=== PATIENT | male | born 1985 | race Caucasian/White ===

== ENCOUNTER 2017-10-26 17:05 | Observation (INO) ==
[2017-10-26] MEDS ORDERED: KETOROLAC TROMETHAMINE 60 MG/2 ML VIAL IM ONE ×2 (17:19)
[2017-10-26] MEDS ORDERED: PROMETHAZINE HCL 50 MG/ML AMPUL IM ONE ×2 (17:21)
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
[2017-10-26 17:34] LABS: Hematocrit 45.7 % (42.0-52.0); Mean Corpuscular Hemoglobin 29.4 pg (27-31); Mean Platelet Volume 10.6 fl (8-11.3); Neutrophil # 8.6 K/mm3 (1.3-6.0); Neutrophil % 82.8 % (42-75.0); Platelet Count 195 K/mm3 (150-450); Red Blood Count 5.44 M/mm3 (4.7-6.0); Red Cell Distribution Width 12.5 % (11.5-14.0); White Blood Count 10.4 K/mm3 (4.0-10.5)
[2017-10-26 17:48] LABS: ALT 81 U/L (19-67); AST 36 U/L (0-48); Albumin * 2.9 gm/dl (3.4-5.0); Alkaline Phosphatase * 256 U/L (50-170); Anion Gap 14.6 mmol/L (6.8-13.8); BUN/Creatinine Ratio 9.2 (9.0-21.6); Bilirubin, Total 2.4 mg/dL (0.0-1.1); Blood Urea Nitrogen 28 mg/dL (6-23); Ca. Corrected For Albumin 9.7 mg/dL (8.4-10.2); Calcium * 9.1 mg/dL (7.9-10.9); Carbon Dioxide 27.5 mmol/L (24-32.6); Chloride 94 mmol/L (97-106); Glucose * 145 mg/dL (70-110); Potassium 4.1 mmol/L (3.4-4.6); Sodium 132 mmol/L (132-142); Total Protein 8.1 gm/dL (6.2-8.2)
[2017-10-26 18:10] LABS: CK Total * 38 U/L (0-259)
[2017-10-26 18:29] LABS: Urine Bilirubin 3 mg/dl (NEGATIVE); Urine Blood 50 /ul (NEGATIVE); Urine Ketone 5 mg/dL (NEGATIVE); Urine Nitrite Negative (NEGATIVE); Urine Protein >=300 mg/dL (NEGATIVE); Urine Specific Gravity >=1.030 SP.GR. (1.005-1.030); Urine Urobilinogen >=8.0 EU/dl (NORMAL)
[2017-10-26 18:37] LABS: Urine Appearance Cloudy (CLEAR); Urine Color Brown
[2017-10-26 18:38] LABS: Urine Bacteria None Seen; Urine RBC 0-5 /hpf (0-5); Urine WBC 0-5 /hpf (0-5)
[2017-10-26 18:39] LABS: Urine Amorphous Sediment Moderate - 2+ (NONE-FEW)
[2017-10-26 18:47] LABS: Amylase * 47 U/L (25-115); Lipase 160 U/L (73-393)
[2017-10-26 18:48] LABS: Prothrombin Time (Patient) 10.7 Seconds (9.0-11.0)
[2017-10-26 18:49] LABS: Cocaine Ur Negative (NEGATIVE); Urine Barbiturate Negative (NEGATIVE); Urine Benzodiazepines Positive (NEGATIVE); Urine Opiates Negative (NEGATIVE); Urine PCP Negative (NEGATIVE); Urine THC Positive (NEGATIVE)
[2017-10-26 18:53] LABS: INR 1.07 INR (0.90-1.10); Partial Thrombolplastin Time 30.7 Seconds (24-32)
[2017-10-26 19:02] LABS: Random Urine Total Protein 303.8 mg/dL (0-12)
[2017-10-26] MEDS ORDERED: NORMAL SALINE 1,000 ML IV ONE (19:10)
[2017-10-26] MEDS ORDERED: ONDANSETRON HCL/PF 2 MG/ML VIAL IV PRN (20:22)
[2017-10-26 20:40] LABS: Hemoglobin A1C 5.6 % (4.00-6.0)
[2017-10-26] MEDS ORDERED: ASPIRIN/ACETAMINOPHEN/CAFFEINE 1 TAB TAB PO PRN (20:43)
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
[2017-10-26] MEDS: HYDROcodone/ACETAMINOPHEN 1 EACH TABLET PO PRN (23:33)
[2017-10-26] MEDS ORDERED: AMOXICILLIN TRIHYDRATE 875 MG TABLET PO SCH (23:45)
[2017-10-27] MEDS: AMOX TR/POTASSIUM CLAVULANATE 500 MG TABLET PO SCH ×4 (00:33→22:53)
[2017-10-27] MEDS: NORMAL SALINE 1,000 ML IV PRN ×3 (04:14→19:51)
[2017-10-27] MEDS: PANTOPRAZOLE SODIUM 40 MG TABLET.EC PO SCH ×2 (04:14→09:16)
[2017-10-27 04:57] LABS: Albumin * 3.1 gm/dl (3.4-5.0); Anion Gap 15.8 mmol/L (6.8-13.8); BUN/Creatinine Ratio 10.3 (9.0-21.6); Ca. Corrected For Albumin 9.3 mg/dL (8.4-10.2); Calcium * 8.9 mg/dL (7.9-10.9); Chol/HDL Risk Ratio 16.7 mg/dL (3.3-5.0); Potassium 3.8 mmol/L (3.4-4.6); Total Protein 7.7 gm/dL (6.2-8.2)
[2017-10-27] MEDS: METOPROLOL SUCCINATE 50 MG TABLET.SA PO SCH (09:16)
[2017-10-27] MEDS: HYDROcodone/ACETAMINOPHEN 1 EACH TABLET PO PRN ×2 (09:20→18:39)
[2017-10-27] MEDS ORDERED: NORMAL SALINE 1,000 ML IV PRN (10:11)
[2017-10-27] MEDS ORDERED: PROMETHAZINE HCL 25 MG in DEXTROSE 5 % IN WATER 50 ML IV ONE ×2 (12:20)
[2017-10-27] MEDS ORDERED: NALBUPHINE HCL 20 MG/ML AMPUL IV ONE (12:20)
[2017-10-27] MEDS ORDERED: NALBUPHINE HCL 10 MG/ML AMPUL IV ONE (13:05)
--- NOTE | 2017-10-27 14:38 | PATH ---
PHYSICIAN: Kulwinder Guerrero DO LAB#: [id number] SPECIMEN DATE: 10/27/2017 SPECIMEN: Urine for eosinophils CLINICAL INFORMATION: Patient is a 32-year-old man admitted with renal insufficiency (GFR 25 mL/min/ BUN 28 mg/dl Creatinine 3.06 mg/dl) and nephrotic range of proteinuria. The patient has a history of hypertension but stopped taking medication. Renal ultrasound on 10/27/2017 shows no abnormalities. Urine for eosinophils is ordered for this reason. GROSS DESCRIPTION: The specimen is received in a urine container appropriately designated urine for cytology. It consists of 100 mL of slightly brown cloudy urine. It is divided and one half is processed for Diff Quik staining and the other is submitted in cytospin fixative for Pap staining. 2 cytospin slides are stained with Pap stain and 2 cytospin slides are stained with Diff Quik staining. DIAGNOSIS: URINE, VOIDED, CYTOLOGIC EXAMINATION: -BENIGN CYTOLOGIC FINDINGS -EOSINOPHIL NUMBER NOT INCREASED COMMENT: Few reactive urothelial cells, many benign urothelial cells, many squamous cells, rare PMNs, few histiocytes, many RBCs, granular casts and abundant proteinaceous debris. The findings provide evidence against interstitial nephritis. The nephrotic range proteinuria and granular casts suggests a glomerular etiology for this patient's renal insufficiency. Critical Care Unit Nurse consultation and possible renal biopsy is suggested. No atypical or malignant cells seen. The findings are FAXED to Dr. Guerrero on 10/27/2017.
[2017-10-27 17:31] LABS: Anion Gap 11.2 mmol/L (6.8-13.8); BUN/Creatinine Ratio 10.5 (9.0-21.6); Calcium * 8.3 mg/dL (7.9-10.9); Carbon Dioxide 28.1 mmol/L (24-32.6); Estimated Creat Clear 34.5; Potassium 4.3 mmol/L (3.4-4.6)
[2017-10-28] MEDS: HYDROcodone/ACETAMINOPHEN 1 EACH TABLET PO PRN ×2 (00:41→06:42)
[2017-10-28] MEDS: NORMAL SALINE 1,000 ML IV PRN ×2 (02:29→09:16)
[2017-10-28 06:37] LABS: Anion Gap 11.9 mmol/L (6.8-13.8); BUN/Creatinine Ratio 12.7 (9.0-21.6); Calcium * 7.9 mg/dL (7.9-10.9); Carbon Dioxide 23.2 mmol/L (24-32.6); Estimated Creat Clear 39.4; Potassium 4.1 mmol/L (3.4-4.6)
[2017-10-28] MEDS: PANTOPRAZOLE SODIUM 40 MG TABLET.EC PO SCH (06:43)
[2017-10-28] MEDS: METOPROLOL SUCCINATE 50 MG TABLET.SA PO SCH (08:26)
[2017-10-28] MEDS: AMOX TR/POTASSIUM CLAVULANATE 500 MG TABLET PO SCH (08:26)
[2017-10-28 09:54] LABS: Phosphorus 3.9 mg/dL (2.2-4.2); Uric Acid 8.1 mg/dL (2.6-7.2)
--- NOTE | 2017-10-28 10:48 | PN ---
Subjective - Date and Time Seen Date: 10/27/17 Time: 16:30 Subjective Narrative: Reports continued headache and nausea. No chest pain, shortness of breath, abdominal pain. He is urinating normally. Objective - Vitals Vitals: Last Vital Signs Selected Entries 10/27/17 10:29 Temperature 36.8 C Pulse Rate 86 Respiratory Rate 14 Blood Pressure 137/75 O2 Sat by Pulse Oximetry 99 Oxygen Delivery Method Room Air - Abnormal Lab Findings Abnormal Lab Findings: Abnormal Lab Results 10/27/17 Range/Units 17:18 VBG pH (7.32-7.43) Carbon Dioxide (24-32.6) mmol/L BUN 38 H (6-23) mg/dL Creatinine 3.61 H (0.4-1.4) mg/dL Est GFR (Non-Af Amer) 21 L (60-130) mL/min Random Glucose 113 H (70-110) mg/dL Uric Acid (2.6-7.2) mg/dL - Exam Constitutional: Present: Alert, Oriented x3, Cooperative Respiratory: Present: lungs clear, normal breath sounds Cardiovascular/Chest: Present: regular rate, rhythm, no murmur Abdomen: Present: Normal bowel sounds, soft, nontender, nondistended, no rebound tenderness Skin Exam: Present: normal color, warm/dry, no cyanosis Eye contact: Present: cooperative, normal speech, avoids eye contact Assessment/Plan Plan Narrative: IV fluids have not improved renal function and BUN and Creatinine are actually worsening. Renal US today was normal. No evidence of obstruction. FeNa 0.6 indicates possible pre Renal but not responding as such. Electrolytes normal and no acidosis. Will continue fluids overnight. If BUN and creatinine are not improving will discuss with nephrology tomorrow about further course of action. - Problems/Diagnosis (1) Acute renal failure Problem: Acute Qualifiers: Acute renal failure type: unspecified Qualified Code(s): N17.9 - Acute kidney failure, unspecified (2) Proteinuria Problem: Acute Qualifiers: Proteinuria type: unspecified Qualified Code(s): R80.9 - Proteinuria, unspecified
[2017-10-28 12:37] VITALS: BP 132/74
[2017-10-29 12:22] LABS: Hepatitis C Antibody NON-REACTIVE (NON-REACTIVE); Hepatitis Panel Confirmation DNR
[2017-10-29 12:24] LABS: Hepatitis A IgM Antibody NON-REACTIVE (NON-REACTIVE); Hepatitis B Surface Antigen NON-REACTIVE (NON-REACTIVE)
--- NOTE | 2017-11-09 13:41 | DS ---
(1) Acute renal failure Problem: Acute Qualifiers: Acute renal failure type: unspecified Qualified Code(s): N17.9 - Acute kidney failure, unspecified (2) Proteinuria Problem: Acute Qualifiers: Proteinuria type: unspecified Qualified Code(s): R80.9 - Proteinuria, unspecified Description of Stay: Edin is a 32 yo male that was admitted due to acute kidney injury. He works construction and the weather recently had been hot, so it was believed he was dehydrated. He had also been having headaches and had just recently gone to the [facility] and been given toradol and a rx for ibuprofen. It was felt that the NSAIDs and dehydration caused acute kidney injury, so he was admitted for IV fluids. FeNa was calculated and indicated the acute kidney injury to be prerenal , but with IV fluids his creatinine only worsened. Fluids were continued, but a renal US was performed, but was normal. UA showed a lot of protein, no eosinophils, and no evidence of infection. Nephrology at [facility] was consulted and the case was discussed over the phone. They recommended transfer and the hospitalist was contacted and the case was discussed. They accepted transfer and he was discharged to [facility] to have Nephrology specialty care. Procedures Performed: none Results and Findings: Lab Pending Results 10/26/17 17:33: WBC 10.4, RBC 5.44, Hgb 16.0, Hct 45.7, MCV 84.0, MCH 29.4, MCHC 35.0, RDW 12.5, Plt Count 195, MPV 10.6, Immature Gran % (Auto) 0.80 H, Immature Gran # (Auto) 0.08 H, Neutrophils % 82.8 H, Lymphocytes % 6.9 L, Monocytes % 7.7, Eosinophils % 1.4, Basophils % 0.4, Nucleated RBC % 0.0, Neutrophils # 8.6 H, Lymphocytes # 0.72 L, Monocytes # 0.8, Eosinophils # 0.1, Absolute Basophils 0.0 10/26/17 17:33: Sodium 132, Plasma Sodium 133, Potassium 4.1, Chloride 94 L, Carbon Dioxide 27.5, Anion Gap 14.6 H, BUN 28 H, Creatinine 3.06 H, Est GFR (Non -Af Amer) 25 L, BUN/Creatinine Ratio 9.2, Random Glucose 145 H, Calcium 9.1, Calcium Adj for Albumin 9.7, Total Bilirubin 2.4 H, AST 36, ALT 81 H, Alkaline Phosphatase 256 H, C-Reactive Prot, Quant Less than 0.2, Total Protein 8.1, Albumin 2.9 L 10/26/17 17:33: Hepatitis A IgM Ab Non-reactive, Hep Bs Antigen Non-reactive, Hep B Core IgM Ab Non-reactive, Hepatitis C Antibody Non-reactive, Hep C Ab Signal/Cutoff 0.01, Hepatitis Interpret Dnr 10/26/17 17:56: GGT 365 H, Creatine Kinase 38 10/26/17 17:56: Monoscreen Negative 10/26/17 18:24: Urine Opiates Screen Negative, Barbiturate Screen Negative, Ur Phencyclidine Scrn Negative, Urine Amphetamine Positive H, U Benzodiazepines Scrn Positive H, Urine Cocaine Screen Negative, Urine Marijuana (THC) Positive H 10/26/17 18:29: PT 10.7, INR (Anticoag Therapy) 1.07, PTT (Ware) 30.7 10/26/17 18:29: Amylase 47, Lipase 160 10/26/17 18:51: Ur Random Creatinine 341.9 H, U Random Total Protein 303.8 H, U [place] Prot/Creat Ratio 889 H 10/26/17 20:01: Mean Blood Glucose 100, Hemoglobin A1c 5.6 10/26/17 : Urine Color Brown, Urine Appearance Cloudy, Urine pH 5.0, Ur Specific [place] >=1.030, Urine Protein >=300 H, Urine Glucose (UA) 100 H, Urine Ketones 5, Urine Blood 50 H, Urine Nitrate Negative, Urine Bilirubin 3 H, Urine Ictotest Positive H, Prot Sulfosalicylic Acd 3+ H, Urine Urobilinogen >= 8.0 H, Ur Leukocyte Esterase Negative, Urine RBC 0-5, Urine WBC 0-5, Ur Epithelial Cells None seen, Amorphous Sediment Moderate - 2+ H, Urine Bacteria None seen, Coarse Granular Casts 5-10 H, Urine Culture Comments No culture indicated 10/27/17 04:05: Sodium 130 L, Plasma Sodium 130, Potassium 3.8, Chloride 93 L, Carbon Dioxide 25.0, Anion Gap 15.8 H, BUN 36 H, Creatinine 3.48 H D, Est GFR ( Non-Af Amer) 22 L, BUN/Creatinine Ratio 10.3, Random Glucose 101 D, Calcium 8.9 , Calcium Adj for Albumin 9.3, Total Bilirubin 2.0 H, AST 42, ALT 83 H, Alkaline Phosphatase 305 H, Total Protein 7.7, Albumin 3.1 L, Triglycerides 240 H, Cholesterol 184, LDL Cholesterol 125, VLDL Cholesterol 48 H, HDL Cholesterol 11 L, Cholesterol/HDL Ratio 16.7 H 10/27/17 05:20: Ur Random Creatinine 160.1, Ur Random Sodium 34 10/27/17 17:18: Sodium 133, Plasma Sodium 133, Potassium 4.3, Chloride 98, Carbon Dioxide 28.1, Anion Gap 11.2, BUN 38 H, Creatinine 3.61 H, Est GFR (Non- Af Amer) 21 L, BUN/Creatinine Ratio 10.5, Random Glucose 113 H, Calcium 8.3 10/27/17 : Urine Eosinophils Spec to path 10/28/17 06:00: Sodium 134, Plasma Sodium 134, Potassium 4.1, Chloride 103, Carbon Dioxide 23.2 L, Anion Gap 11.9, BUN 40 H, Creatinine 3.16 H D, Est GFR ( Non-Af Amer) 24 L, BUN/Creatinine Ratio 12.7, Random Glucose 128 H, Calcium 7.9 10/28/17 06:00: Uric Acid 8.1 H, Phosphorus 3.9 10/28/17 09:48: Creatine Kinase 38 10/28/17 09:52: VBG pH 7.303 L Discharge Location: [facility] Disposition: Short Term Hospital Inpatient Condition: Good Discharge Activity: Activity as tolerated Discharge Diet: General/regular food Problem Oriented Discharge Instructions to Patient/Family: Acute Kidney Injury Complete Home Medications List: Complete Home Medication List: Metoprolol Succinate [Toprol Xl] 50 mg PO HS 10/26/17
== END 2017-10-28 13:15 | disposition short-term general hospital (02) ==
LOC: ER 17:05 → MS 17:05
PROVIDERS: ADMIT Family Medicine; ATTEND Family Medicine
CPT/HCPCS: 36415; 70450; 76770; 80048; 80053; 80061; 80074; 80307; 81001; 82150; 82550; 82570; 82800; 82977; 83036; 83690; 84100; 84155; 84156; 84300; 84550; 85025; 85610; 85730; 86140; 86308; 88108; 89050; 96361; 96365; 96366; 96372; 96375; 99284; G0378; G0479